=== PATIENT | male | born 1990 ===

== ENCOUNTER 2024-09-26 06:08 | Day surgery (SDC) | payer OTHER ==
[2024-09-26] MEDS ORDERED: MIDAZOLAM HCL 2 MG/2 ML VIAL IV ONE (10:30)
[2024-09-26] MEDS ORDERED: fentaNYL CITRATE 50 MCG/ML AMPUL IV PUSH ONE (10:30)
[2024-09-26] MEDS ORDERED: DIPHENHYDRAMINE HCL 50 MG/ML VIAL 1ML IV ONE ×2 (10:30)
== END 2024-09-26 11:55 | disposition home or self-care (01) ==
LOC: AMB-ENDOS 06:08
PROVIDERS: ATTEND Colon & Rectal Surgery
DX: K57.30 Diverticulosis of large intestine without perforation or abscess without bleeding (principal)